=== PATIENT | female | born 1935 | race Hispanic/Latino ===

== ENCOUNTER 2018-08-14 11:56 | Observation (INO) | payer MEDICARE ==
[2018-08-11 13:30] LABS: BASOPHILS % (AUTO) 1.1 % (0.0-5.0); EOSINOPHILS % (AUTO) 4.9 % (0.0-8.0); HEMATOCRIT 29.6 % (36-48); LYMPHOCYTES % (AUTO) 25.8 % (21.0-51.0); MEAN CORPUSCULAR VOLUME 84.9 fL (79-99); MONOCYTES % (AUTO) 7.5 % (3.0-13.0); NEUTROPHILS % (AUTO) 60.7 % (40.0-77.0); PLATELET COUNT (AUTO) 360 K/uL (130-400); RED BLOOD CELL COUNT(AUTO) 3.49 MIL/uL (4.00-5.50); RED CELL DISTRIBUTION WIDTH 17.6 % (11.0-15.5); WHITE BLOOD COUNT (AUTO) 8.4 K/uL (4.8-10.8)
[2018-08-11 13:32] LABS: APPEARANCE,URINE Cloudy (CLEAR); BILIRUBIN,URINE Negative (NEGATIVE); COLOR,URINE Yellow (YELLOW); GLUCOSE, URINE (UA) TRACE mg/dL (NEGATIVE); KETONES,URINE Negative (NEGATIVE); LEUKOCYTE ESTERASE ,URINE Moderate (NEGATIVE); NITRATE,URINE Negative (NEGATIVE); OCCULT BLOOD,URINE Trace (NEGATIVE); PROTEIN,URINE 300 mg/dL (NEGATIVE); UROBILINOGEN,URINE 0.2 mg/dL (0.2-1.0)
[2018-08-11 13:37] LABS: CREATININE 1.1 mg/dL (0.5-1.5); POTASSIUM 4.2 mmol/L (3.5-5.1)
[2018-08-11 13:42] LABS: BACTERIA,URINE Few /HPF (None Seen); INR 0.94 (0.85-1.15); MUCUS,URINE Rare LPF (None Seen); PARTIAL THROMBOPLASTIN TIME 28.7 SEC (26.3-35.5); PROTHROMBIN TIME 9.9 SEC (9.6-11.6); RBC,URINE 0-1 /HPF (0-1); SQUAMOUS EPITHELIAL CELL,UR Few /HPF (0-2); TRANSITIONAL EPI CELLS,URINE Few /HPF (None Seen); WBC,URINE 26-50 /HPF (0-1)
[2018-08-11 13:44] LABS: YEAST,URINE BUDDING Rare /HPF (None Seen)
[2018-08-11 14:08] VITALS: BP 150/59
--- NOTE | 2018-08-11 16:00 | NUR ---
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
--- NOTE | 2018-08-11 18:11 | NUR ---
CBC, UA paged Dr Alvarenga regarding abnormal CBC, UA from 08/11/2018
[~2018-08-14] VITALS: Ht 147.3 cm; Wt 59.2 kg
[2018-08-14] VITALS (9 sets, daily range): BP systolic 109–135; BP diastolic 39–59
[~2018-08-14 11:56] MED LIST: ACET-2247 PO; AMLO10TA7 PO; AMOX-429 PO; BUDE0.5A8 IH; CHLO473M2 MM; FOLI1TAB85 PO; MAGOX PO; METF-444 PO; OMEP20TA25 PO; POTA20TA12 PO; PREG75 PO; ROSU10TA PO; SODIUM CHLORIDE 0.9% 500ML 500 ML IV SCH; TORS10TA PO
--- NOTE | 2018-08-14 12:20 | NUR ---
ABNORMAL LABS CBC AND UA RESULTS REPORTED TO DR. SEBASTIAN, NO FURTHER ORDERS GIVEN, WILL PROCEED WITH PLANNED PROCEDURE.
--- NOTE | 2018-08-14 12:30 | NUR ---
ASSESS LEFT LOWER EXTREMITY REDNESS NOTED, BAND AID TO LEFT BIG TOE AND 3RD TOE
--- NOTE | 2018-08-14 12:45 | NUR ---
MED REC CALLED [facility], SPOKE TO JOSE PT'S NURSE AT [facility], REPORT GIVEN, ALSO GAVE REPORT ON MEDICATION RECONCILIATION.
[2018-08-14] MEDS ORDERED: SODIUM CHLORIDE 0.9% 1000ML 1,000 ML IV ONE (13:12)
--- NOTE | 2018-08-14 13:59 | NUR ---
TO [facility] PT WILL BE TAKEN TO [facility] BY ALLEN LARA. PT STABLE.
[2018-08-14] MEDS ORDERED: IODIXANOL 320 MG/ML 100 ML VIAL ONE (14:11)
[2018-08-14] MEDS ORDERED: NITROGLYCERIN 5 MG/ML 10 ML VIAL IV ONE (14:11)
[2018-08-14] MEDS ORDERED: LIDOCAINE HCL 2% 20ML ONE (14:11)
[2018-08-14] MEDS ORDERED: HEPARIN SODIUM 1000UNIT/ML 10ML VIAL ONE (14:11)
[2018-08-14] MEDS ORDERED: LABETALOL 20 MG/4 ML DISP.SYRIN IV ONE (14:41)
[2018-08-14] MEDS ORDERED: ONDANSETRON HCL 4 MG/2 ML VIAL ONE (15:54)
[2018-08-14] MEDS ORDERED: CLOPIDOGREL BISULFATE 300 MG TAB ONE (16:40)
[2018-08-14] MEDS ORDERED: ASPIRIN 81MG TAB.CHEW ONE (16:40)
[2018-08-14] MEDS ORDERED: SODIUM CHLORIDE 0.9% 1000ML 1,000 ML IV SCH (16:50)
[2018-08-14] MEDS ORDERED: ACETAMINOPHEN 325 MG TAB PO PRN (17:00)
[2018-08-14] MEDS ORDERED: CLOPIDOGREL BISULFATE 300 MG TAB PO SCH (17:00)
[2018-08-14] MEDS ORDERED: AMLODIPINE BESYLATE 5 MG TAB PO SCH (17:00)
--- NOTE | 2018-08-14 17:35 | NUR ---
REPORT TO ELEANOR VILLA,
--- NOTE | 2018-08-14 20:08 | NUR ---
As per Dr. Bang d/c in am no need for wound care recommendations inpatient. patient is already treated by joist setter and pcp. D./c in am. Dr bang will round before d/c.
[2018-08-14] MEDS ORDERED: ATORVASTATIN CALCIUM 20 MG TABLET PO SCH (21:00)
[2018-08-14] MEDS: AMOXICILLIN/POTASSIUM CLAV 875-125 TABLET PO SCH (21:24)
[2018-08-14] MEDS: MAGNESIUM OXIDE 400 MG TABLET PO SCH (21:25)
[2018-08-14] MEDS: PREGABALIN 75 MG CAPSULE PO SCH (21:25)
[2018-08-14] MEDS: POTASSIUM CHLORIDE 20 MEQ ERTAB PO SCH (21:25)
[2018-08-15 00:32] VITALS: BP 128/74
[2018-08-15 03:39] LABS: HEMATOCRIT 22.6 % (36-48); MEAN CORPUSCULAR HEMOGLOBIN 28.1 pg (27.0-33.0); MEAN CORPUSCULAR HGB CONC 33.3 g/dL (32.0-36.0); MEAN CORPUSCULAR VOLUME 84.4 fL (79-99); PLATELET COUNT (AUTO) 349 K/uL (130-400); RED BLOOD CELL COUNT(AUTO) 2.67 MIL/uL (4.00-5.50); RED CELL DISTRIBUTION WIDTH 18.3 % (11.0-15.5); WHITE BLOOD COUNT (AUTO) 7.2 K/uL (4.8-10.8)
[2018-08-15 03:56] LABS: CREATININE 1.2 mg/dL (0.5-1.5); POTASSIUM 4.4 mmol/L (3.5-5.1)
[2018-08-15 03:57] VITALS: BP 119/46
[2018-08-15] MEDS ORDERED: BUDESONIDE 0.5 MG/2 ML INH IH SCH (06:00)
[2018-08-15 07:49] VITALS: BP 124/47
[2018-08-15] MEDS ORDERED: CHLORHEXIDINE GLUCONATE 473 ML MOUTHWASH MM SCH (09:00)
[2018-08-15] MEDS ORDERED: AMLODIPINE BESYLATE 5 MG TAB PO SCH (09:00)
[2018-08-15] MEDS ORDERED: ASPIRIN 81MG TAB.CHEW PO SCH (09:00)
[2018-08-15] MEDS ORDERED: PANTOPRAZOLE SODIUM 40 MG TABLET.DR PO SCH (09:00)
[2018-08-15] MEDS ORDERED: TORSEMIDE 5 MG PO SCH (09:00)
[2018-08-15] MEDS ORDERED: CLOPIDOGREL BISULFATE 75 MG TAB PO SCH (09:00)
[2018-08-15] MEDS ORDERED: FOLIC ACID/VITAMIN B COMP W-C 1 MG CAPSULE PO SCH (09:00)
[2018-08-15] MEDS: AMOXICILLIN/POTASSIUM CLAV 875-125 TABLET PO SCH (10:10)
[2018-08-15] MEDS: POTASSIUM CHLORIDE 20 MEQ ERTAB PO SCH (10:11)
[2018-08-15] MEDS: MAGNESIUM OXIDE 400 MG TABLET PO SCH ×2 (10:11→14:25)
[2018-08-15] MEDS: PREGABALIN 75 MG CAPSULE PO SCH (10:11)
[2018-08-15 11:07] VITALS: BP 133/43
--- NOTE | 2018-08-15 13:40 | NUR ---
DC PLAN VISITED WITH PATIENT AND FAMILY. PATIENT EAGER TO RETURN TO REHAB. SPOKE TO REP SAID PATIENT OKAY TO RETURN WAS THERE FOR SHORT TERM THERAPY. WILL GO VIA [facility]ILITY [facility]. Addendum: 08/15/18 at 1341 by STEVNE ROCHA RN CM Amended: Links added.
[2018-08-15] MEDS ORDERED: CLOP75TA32 PO (14:55)
[2018-08-18] MEDS ORDERED: PREG75 PO (01:11)
[2018-08-18] MEDS ORDERED: CYAN1TAB19 PO (01:11)
[2018-08-18] MEDS ORDERED: CLOP75TA14 PO (01:11)
[2018-08-18] MEDS ORDERED: METF-444 PO (01:11)
[2018-08-18] MEDS ORDERED: ROSU10TA27 PO (01:11)
[2018-08-18] MEDS ORDERED: AMLO10TA7 PO (01:11)
[2018-08-18] MEDS ORDERED: OMEP20CA10 PO (01:11)
[2018-08-18] MEDS ORDERED: MAGN400T41 PO (01:11)
[2018-08-18] MEDS ORDERED: BUDE0.5A8 IH (01:11)
[2018-08-18] MEDS ORDERED: POTA20TA12 PO (01:11)
== END 2018-08-15 16:13 ==
LOC: DAH 11:56 → DAHIP 11:57 → 2AH 18:20
PROVIDERS: ADMIT Internal Medicine Cardiovascular Disease; ATTEND Internal Medicine Cardiovascular Disease
DX: I70.212 Atherosclerosis of native arteries of extremities with intermittent claudication, left leg (principal); L03.039 Cellulitis of unspecified toe; N17.9 Acute kidney failure, unspecified; E11.40 Type 2 diabetes mellitus with diabetic neuropathy, unspecified; E11.42 Type 2 diabetes mellitus with diabetic polyneuropathy; E55.9 Vitamin D deficiency, unspecified; E78.5 Hyperlipidemia, unspecified; Z79.899 Other long term (current) drug therapy
CPT/HCPCS: 36415 ×2; 37221; 71045; 75630; 80048 ×2; 80061; 81001; 82948 ×2; 85025; 85027; 85610; 85730; 93005; 94640; 94664; A4606; C1725 ×2; C1760 ×3; C1769 ×3; C1876; C1887 ×3; C1894 ×6; G0378 ×28; J1644 ×3; J2405; J3490 ×2; J7030; Q9967

== ENCOUNTER → 2020-08-11 | Outpatient (CLI) | payer MEDICARE ==
[~2020-08-11] MED LIST changes: -ACET-2247 PO; +AMLO-258 PO; -AMLO10TA7 PO; -AMOX-429 PO; -CHLO473M2 MM; +CLOP75TA14 PO; +CYAN1TAB19 PO; -FOLI1TAB85 PO; +MAGN400T41 PO; -MAGOX PO; +OMEP20CA12 PO; -OMEP20TA25 PO; -ROSU10TA PO; +ROSU10TA28 PO; -SODIUM CHLORIDE 0.9% 500ML 500 ML IV SCH; -TORS10TA PO
== END | disposition home or self-care (01) ==
LOC: SHCH 08:00
PROVIDERS: ATTEND Internal Medicine Cardiovascular Disease
DX: I10 Essential (primary) hypertension (principal)
CPT/HCPCS: 93306; 93356

== ENCOUNTER → 2020-08-12 | Outpatient (CLI) | payer MEDICARE | END | disposition home or self-care (01) | LOC: SHCH 08:26 | PROVIDERS: ATTEND Internal Medicine Cardiovascular Disease | DX: I73.9 Peripheral vascular disease, unspecified (principal) | CPT/HCPCS: 93922 ==

== ENCOUNTER → 2020-09-29 | Outpatient (CLI) | payer MEDICARE | END | disposition home or self-care (01) | LOC: RAH 12:42 | PROVIDERS: ATTEND Internal Medicine Cardiovascular Disease | DX: I11.0 Hypertensive heart disease with heart failure (principal); I50.9 Heart failure, unspecified; I25.10 Atherosclerotic heart disease of native coronary artery without angina pectoris | CPT/HCPCS: 71046 ==

== ENCOUNTER → 2022-02-15 | Outpatient (CLI) | payer MEDICARE ==
[~2022-02-15] MED LIST changes: -AMLO-258 PO; -BUDE0.5A8 IH; +BUME1TAB7 PO; +CEPH500B PO; +CHOL500051 PO; -CLOP75TA14 PO; -CYAN1TAB19 PO; +FERR-72 PO; +FLUT16H NASAL; +FOLI0.8T22 PO; +ICOS1CAP PO; +LINA5TAB PO; -MAGN400T41 PO; -METF-444 PO; -OMEP20CA12 PO; +PANT40TA54 PO; -POTA20TA12 PO; -PREG75 PO; +PROP10DR5 OP; -ROSU10TA28 PO; +ZINC220T4 PO
[2022-02-15 13:01] LABS: ALBUMIN 2.9 g/dL (3.5-5.0); CREATININE 5.4 mg/dL (0.5-1.5); POTASSIUM 4.8 mmol/L (3.5-5.1); TOTAL PROTEIN, SERUM 6.4 g/dL (6.0-8.3)
== END | disposition home or self-care (01) ==
LOC: LAB 08:52
PROVIDERS: ATTEND Internal Medicine Cardiovascular Disease
DX: E78.2 Mixed hyperlipidemia (principal)
CPT/HCPCS: 36415; 80053; 80061

== ENCOUNTER → 2022-10-19 | Outpatient (CLI) | payer OTHER, MEDICARE ==
[~2022-10-19] MED LIST changes: +AEC81 PO; +AMLO-257 PO; +ASCO500C6 PO; +ATOR40TA69 PO; +CALC667C10 PO; -CEPH500B PO; +METO25 PO; +Nitroglycerin 0.4MG Sl Tab SL; +SODI5POW2 PO; +SODI650T PO; +[UNRECOGNIZED DRUG - CODE] IJ
[2022-10-19 16:48] LABS: ALBUMIN 3.1 g/dL (3.5-5.0); POTASSIUM 5.7 mmol/L (3.5-5.1); TOTAL PROTEIN, SERUM 6.2 g/dL (6.0-8.3)
== END | disposition home or self-care (01) ==
LOC: LAB 09:04
PROVIDERS: ATTEND Internal Medicine Cardiovascular Disease
DX: I50.22 Chronic systolic (congestive) heart failure (principal); E11.22 Type 2 diabetes mellitus with diabetic chronic kidney disease
CPT/HCPCS: 36415; 80053; 80061